=== PATIENT | female | born 1995 | race Caucasian/White ===

== ENCOUNTER 2021-04-24 20:12 | Emergency (ER) | payer OTHER ==
[~2021-04-24] VITALS: Ht 162.6 cm; Wt 76.3 kg
[2021-04-24 20:13] VITALS: BP 129/79
[2021-04-24] MEDS ORDERED: APRITAB PO (20:18)
== END 2021-04-24 22:17 | disposition home or self-care (01) ==
LOC: M ED 20:12
DX: S86.912A Strain of unspecified muscle(s) and tendon(s) at lower leg level, left leg, initial encounter (principal); Y92.9 Unspecified place or not applicable; Y93.9 Activity, unspecified; Y99.9 Unspecified external cause status